=== PATIENT | male | born 1995 | race Caucasian/White ===

== ENCOUNTER → 2018-06-22 | Outpatient (CLI) | payer OTHER ==
--- NOTE | 2018-06-22 20:19 | ECHOS ---
STRESS ECHOCARDIOGRAM INDICATIONS: Abnormal EKG. BASELINE HEART RATE: 79 BASELINE BLOOD PRESSURE: 111/60 MAXIMUM HEART RATE: 181 MAXIMUM BLOOD PRESSURE: 147/58 85% MPHR: 168 100% MPHR: 198 METS: 10.1 MAXIMUM STAGE REACHED: 4 TOTAL EXERCISE TIME: 10:30 CLINICAL INFORMATION: Mo Taylor is a 22 male patient who was sent for a stress test because of an abnormal EKG. Baseline heart rate 79 beats per minute. Baseline blood pressure 111/60 mmHg. Baseline 12-lead ECG shows sinus rhythm with normal cardiac intervals. Incomplete right bundle branch block pattern. Patient exercised on a Jarvis protocol for 10 minutes 30 seconds achieving a peak heart rate of 181 beats per minute. Normal blood pressure response to exercise. There was no ECG evidence for ischemia. No arrhythmias were noted. Baseline 2D echo images showed normal LV size and systolic function. At peak exercise, there was excellent augmentation of overall LV contractility without developing any wall motion abnormalities. At recovery, regional global LV systolic function remained normal. IMPRESSION: No ECG or echocardiographic evidence for ischemia. MMODL / IJN: [id number] /
== END | disposition home or self-care (01) ==
LOC: RADNMMAIN 09:59
PROVIDERS: ATTEND Family Medicine
DX: R94.31 Abnormal electrocardiogram [ECG] [EKG] (principal)
CPT/HCPCS: 93351

== ENCOUNTER 2020-08-08 18:50 | Emergency (ER) | payer BC, OTHER ==
[2020-08-08 19:08] VITALS: BP 121/77; PULSE 89; RESP 18; TEMP 98.9
[2020-08-08] MEDS ORDERED: HYDROcodone/APAP 5-325MG 1 EACH TAB PO STA (19:19)
[2020-08-08] MEDS ORDERED: LIDOCAINE 1% INJ 10MG/ML (20 ML MDV) SQ ONE (19:19)
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
--- NOTE | 2020-08-08 19:50 | XR ---
EXAMINATION TYPE: XR finger LT DATE OF EXAM: 08/08/2020 COMPARISON: NONE HISTORY: Pain laceration TECHNIQUE: 3 views FINDINGS: I see no fracture nor dislocation. Joint spaces are normal. There are small 1 mm densities near the skin surface of the anterior aspect of the IP joint of the thumb consistent with superficial foreign bodies. IMPRESSION: Superficial foreign bodies. No fracture seen.
[2020-08-08] MEDS ORDERED: CEPHALEXIN 500MG STARTER PACK 4 CAP BTL PO STA (20:12)
== END 2020-08-08 20:46 | disposition home or self-care (01) ==
LOC: EC 18:50
DX: S61.012A Laceration without foreign body of left thumb without damage to nail, initial encounter (principal); F17.200 Nicotine dependence, unspecified, uncomplicated; F90.9 Attention-deficit hyperactivity disorder, unspecified type; Z79.899 Other long term (current) drug therapy; W26.0XXA Contact with knife, initial encounter; Y92.009 Unspecified place in unspecified non-institutional (private) residence as the place of occurrence of the external cause
CPT/HCPCS: 73140; 12001; 99283; J2001

== ENCOUNTER 2024-02-15 17:25 | Emergency (ER) | payer BC ==
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
[2024-02-15 18:04] LABS: ALT 15 U/L (4-49); AST 30 U/L (17-59); African American GFR (CKD) >90 (>60 ml/min/1.73 sqM); Alcohol <10 mg/dL; Alkaline Phosphatase 103 U/L (38-126); Anion Gap 8 mmol/L; Blood Urea Nitrogen 12 mg/dL (9-20); Calcium 9.9 mg/dL (8.4-10.2); Carbon Dioxide 29 mmol/L (22-30); Chloride 103 mmol/L (98-107); Glucose 68 mg/dL (74-99); INR 1.1 (<1.2); Non-African American GFR(CKD) >90 (>60 ml/min/1.73 sqM); Partial Thromboplastin Time 24.3 sec (22.0-30.0); Potassium 3.8 mmol/L (3.5-5.1); Prothrombin Time 11.5 sec (10.0-12.5); Sodium 140 mmol/L (137-145); Total Bilirubin 0.9 mg/dL (0.2-1.3)
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
[2024-02-15] MEDS: HYDROmorphone 0.5 MG/0.5 ML SYRINGE IVP STA (18:10)
[2024-02-15] MEDS: SODIUM CHLORIDE 0.9% 500 ML 500 ML IV ONE (18:12)
[2024-02-15] MEDS: DIPH,PERTUS(ACELL)TETVAC-LF 0.5 ML VIAL IM ONE (18:15)
[2024-02-15 18:22] LABS: Basophils # (A) 0.1 k/uL (0-0.2); Basophils % (A) 0 %; Eosinophils % (A) 0 %; HCT 41.3 % (39.0-53.0); HGB 14.4 gm/dL (13.0-17.5); Lymphocytes # (A) 1.4 k/uL (1.0-4.8); Lymphocytes % (A) 9 %; MCH 30.4 pg (25.0-35.0); MCHC 34.9 g/dL (31.0-37.0); MCV 87.3 fL (80.0-100.0); Mean Platelet Volume 7.5; Monocytes # (A) 0.8 k/uL (0-1.0); Monocytes % (A) 5 %; Neutrophils # (A) 13.1 k/uL (1.3-7.7); Neutrophils % (A) 85 %; Platelet Count 294 k/uL (150-450); RBC 4.73 m/uL (4.30-5.90); RDW 12.6 % (11.5-15.5); WBC 15.5 k/uL (3.8-10.6)
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
[2024-02-15] MEDS: KETOROLAC 15 MG/ML 1 ML VIAL IVP STA (19:44)
[2024-02-15] MEDS: LIDOCAINE 1% INJ 10MG/ML (20 ML MDV) SQ ONE (19:45)
[2024-02-15] MEDS: AMOXIC-POT CLAV 875-125MG 1 EACH TAB PO STA (19:47)
[2024-02-15 21:28] VITALS: BP 134/82; PULSE 86; RESP 18; TEMP 98.6
== END 2024-02-15 20:30 | disposition home or self-care (01) ==
LOC: EC 17:25
DX: S02.609A Fracture of mandible, unspecified, initial encounter for closed fracture (principal); S62.525A Nondisplaced fracture of distal phalanx of left thumb, initial encounter for closed fracture; S01.511A Laceration without foreign body of lip, initial encounter; F17.200 Nicotine dependence, unspecified, uncomplicated; I45.10 Unspecified right bundle-branch block; R00.0 Tachycardia, unspecified; R07.89 Other chest pain; Z23 Encounter for immunization; V86.56XA Driver of dirt bike or motor/cross bike injured in nontraffic accident, initial encounter; Y92.410 Unspecified street and highway as the place of occurrence of the external cause; Y93.55 Activity, bike riding
CPT/HCPCS: 36415; 93005; 86900; 86901; 80053; 84484; 85025; 85610; 85730; 86850; 80320; 72170; 73130; 71045; 72125; 70486; 70450; 90715; 12011; 29125; 99284; 96374; 96375; 90471; J2001; J1885; J1170

== ENCOUNTER → 2024-03-10 | Outpatient (CLI) | payer BC ==
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
== END | disposition home or self-care (01) ==
LOC: RADUSWWP 13:59
PROVIDERS: ATTEND Family Medicine
DX: K40.20 Bilateral inguinal hernia, without obstruction or gangrene, not specified as recurrent (principal)
CPT/HCPCS: 76882